=== PATIENT | male | born 1990 | race Two or more races ===

== ENCOUNTER 2025-08-19 12:39 | Emergency (ER) | payer BC, SELFPAY ==
[2025-08-19] VITALS (7 sets, daily range): BP systolic 104–143; BP diastolic 57–101
--- NOTE | 2025-08-19 13:30 | ED.GENMED ---
History of Present Illness
<Toi Fortune MD, Resident - Last Filed: 08/19/25 16:04>
General
Chief Complaint: Breathing Problem
Time Seen by Provider: 08/19/25 13:01
History of Present Illness
History of Present Illness:
Patient is a 35-year-old male with PMH of A-fib s/p ablation in February 2025 who presented to the [facility] ED with 3 days of shortness of breath. Shortness of breath is limiting his activity level, worse with sitting and standing, better with lying
down, associated with lightheadedness, mild cough, fatigue, and central chest pressure that the patient attributes to bloating/gas. Patient recently traveled to [place], returning 5 days ago (08/14). Patient also developed tingling in his upper
extremities today, which extends throughout his upper extremities and up to his knee in his lower extremities. The tingling is more pronounced more distally. No associated weakness or pain. Patient has previously seen a physical therapist and
machine mover for a neuromuscular complaint in his upper back, though he has no specific diagnosis for that problem. Patient has had approximately 30-40 pounds of weight loss since his A-fib ablation in February, which he attributes to changes to his
activity level following the procedure. Denies N/V/D, fever, chills, sick contacts, headache, bloody stool, black stool, wheezing, or hemoptysis.
Past History
<Toi Fortune MD, Resident - Last Filed: 08/19/25 16:04>
Past History
ED Past Medical History: Arrthythmia (A-fib s/p ablation)
ED Past Surgical History: Cardiac (A-fib ablation)
Family History
Family History: Cancer (Stomach - uncle; Colon - uncle)
Review of Systems
<Toi Fortune MD, Resident - Last Filed: 08/19/25 16:04>
Review of Systems
Constitutional: Reports weight loss and fatigue; Denies fever or chills
Respiratory: Reports cough and trouble breathing; Denies hemoptysis
Cardiac: Reports other (Lightheaded); Denies chest pain
ABD/GI: Reports other (Denies bowel incontinence); Denies abdominal pain, nausea, vomiting, diarrhea, bloody stools or black stools
: Denies incontinence
Neurological: Reports dizzy and other (Tingling in all 4 extremities; denies saddle anesthesia); Denies headache, weakness or numbness
Phy Exam
<Toi Fortune MD, Resident - Last Filed: 08/19/25 16:04>
Physical Exam
Physical Exam:
General: NAD. Conversant.
CV: RRR. S1, S2 noted. No LE edema. No M/R/G.
Pulm: CTAB. No wheezes or crackles. No cyanosis.
GI: Soft, nontender. Nondistended.
Neuro: A&O x 3. Motor, sensory intact. CN II through XII grossly intact. Patient describes increased extremity tingling after taking deep breaths.
Course
<Toi Fortune MD, Resident - Last Filed: 08/19/25 16:04>
Orders/Labs/Results
Orders:
Orders
08/19/25 12:40
EKG [Electrocardiogram (*1)] Urgent
Reason for Study: Shortness of Breath
08/19/25 12:41
EKG- Treatment ONCE
08/19/25 13:35
Complete Blood Count/With Diff Urgent
Comprehensive Metabolic Panel Urgent
Manual Differential Urgent
08/19/25 14:10
Chest [CR Chest - 2 Views ] Urgent
Comment:
Reason For Exam: Shortness of breath
08/19/25 14:19
COVID-19 Antigen Urgent
Source: Nasal Swab
D-Dimer Urgent
Troponin I Urgent
Influenza A+B Rapid Molecular Urgent
JIMMY Source: Nasal Swab
Specimen Description:
Abnormal Lab Results
08/19/25
13:35
MCH 31.9 H pg
(27.0-31.0)
Sodium 134 L mmol/L
(135-145)
Calcium 10.3 H mg/dl
(8.4-10.2)
08/19/25 13:35
08/19/25 13:35
Vital Signs
Initial and Last Documented VS:
Initial Vital Signs
Temp Pulse Resp BP Pulse Ox
98.3 F 66 18 143/101 98
08/19/25 12:42 08/19/25 12:42 08/19/25 12:42 08/19/25 12:42 08/19/25 12:42
Last Documented Vital Signs
Temp Pulse Resp BP Pulse Ox
98.3 F 59 15 120/65 99
08/19/25 12:42 08/19/25 14:30 08/19/25 14:30 08/19/25 14:00 08/19/25 14:30
<Billy العراقي, DO - Last Filed: 08/19/25 15:32>
Orders/Labs/Results
Orders:
Orders
08/19/25 12:40
EKG [Electrocardiogram (*1)] Urgent
Reason for Study: Shortness of Breath
08/19/25 12:41
EKG- Treatment ONCE
08/19/25 13:35
Complete Blood Count/With Diff Urgent
Comprehensive Metabolic Panel Urgent
Manual Differential Urgent
08/19/25 14:10
Chest [CR Chest - 2 Views ] Urgent
Comment:
Reason For Exam: Shortness of breath
08/19/25 14:19
COVID-19 Antigen Urgent
Source: Nasal Swab
D-Dimer Urgent
Troponin I Urgent
Influenza A+B Rapid Molecular Urgent
JIMMY Source: Nasal Swab
Specimen Description:
Abnormal Lab Results
08/19/25
13:35
MCH 31.9 H pg
(27.0-31.0)
Sodium 134 L mmol/L
(135-145)
Calcium 10.3 H mg/dl
(8.4-10.2)
08/19/25 13:35
08/19/25 13:35
Vital Signs
Initial and Last Documented VS:
Initial Vital Signs
Temp Pulse Resp BP Pulse Ox
98.3 F 66 18 143/101 98
08/19/25 12:42 08/19/25 12:42 08/19/25 12:42 08/19/25 12:42 08/19/25 12:42
Last Documented Vital Signs
Temp Pulse Resp BP Pulse Ox
98.3 F 59 15 120/65 99
08/19/25 12:42 08/19/25 14:30 08/19/25 14:30 08/19/25 14:00 08/19/25 14:30
<Toi Fortune MD, Resident - Last Filed: 08/19/25 16:04>
MDM/Problems Addressed
Differential Diagnosis Includes:
Pulmonary embolism
Pericardial effusion
Pneumonia
Heart failure
Bronchitis
Pneumothorax
Anemia
Pulmonary vein stenosis
Intracardiac shunt
MDM/Problems Addressed:
Assessment: Patient is a 35-year-old male with PMH of A-fib s/p ablation in February 2025 who presented to [facility] ED with 3 days of positional shortness of breath (worse sitting/standing, better supine), fatigue, mild cough, and lightheadedness in
setting of return from trip to [place] 5 days ago. Patient also has 1 day of tingling in all 4 extremities. Concern for PE vs. infection (bronchitis, pneumonia) vs. complication of ablation (pulmonary vein stenosis, intracardiac shunt, pericardial
effusion). Results as follows:
Clinical: AFVSS, EKG shows sinus bradycardia (HR 58)
Labs: WBC 5.6, Hgb 16.1, D-dimer negative, COVID-negative, flu negative, troponin 0.013
Imaging: CXR pending
Plan:
#Shortness of breath
EKG
Labs: CBC, CMP, D-dimer, troponin, COVID, flu
Imaging: CXR
Chronic conditions affecting care: Arrhythmia (S/p ablation)
<Toi Fortune MD, Resident - Last Filed: 08/19/25 16:04>
*Pulse Oximetry
SaO2: 99
Oxygen Mode of Delivery: Room air
*Critical Care Note
Total Time (30-74mins, 75-104mins- exclusive of procedures): Not Applicable
<Billy العراقي DO - Last Filed: 08/19/25 15:32>
*Radiology
Radiology exam reviewed: preliminary read by ED provider (I independently viewed and interpreted two-view chest x-ray showing clear lungs, normal cardiac silhouette)
*Pulse Oximetry
Patient hypoxic: no
*EKG
Interpreted by ED Provider?: Yes (I independently viewed and interpreted twelve-lead EKG showing sinus bradycardia, rate 58, normal axis, normal intervals, this is a normal variant, no prior for comparison)
*Market Survey Representative Interpretation
Rate: bradycardiac (I independently viewed and interpreted rhythm strip showing sinus bradycardia, no ectopy)
ED Attending Note
<Toi Fortune MD, Resident - Last Filed: 08/19/25 16:04>
-
Portions of this chart may have been created with voice recognition software.� Occasional wrong word or��sound alike� substitutions may have occurred due to the inherent limitations of voice recognition software.
<Billy العراقي DO - Last Filed: 08/19/25 15:32>
ED Attending Note
Patient seen and examined by attending physician: Yes
I performed the substantive portion of visit, reviewed & personally made and approve the management plan that is documented in note by myself or SHWETA.: Yes
I performed a history and physical exam of patient and discussed management with resident, I reviewed resident's note and agree with documented findings and plan of care.: Yes
ED Attending Note:
35-year-old male presents to the ER for evaluation of a constellation of symptoms which have been going on for the last several weeks. Patient states that he has been experiencing intermittent tingling to all 4 of his extremities off and on since
his cardiac ablation for atrial fibrillation. He is not currently on any medications. He recently traveled to [place] and states that he tolerated that without any difficulty. He had been having episodes of syncope but has not had any of that
recently. He has been eating and drinking without difficulty. No fevers. He comes to the ER today because he is feeling short of breath when laying flat. He denies chest pain per se. Vital signs reviewed, patient is awake, alert, appears no
acute distress, mucous membranes moist, conjunctiva pink, no JVD, heart regular rate and rhythm no murmurs or ectopy, lungs are clear to auscultation no wheezes rales or rhonchi, 2+ radial pulses present bilateral upper extremities with brisk cap
refill to the hands, 2+ DP pulses present symmetric bilateral lower extremities with brisk cap refill to the toes, GCS is 15. I discussed with patient and resident physician very reassuring workup so far including negative D-dimer. Chest x-ray is
clear. EKG showed does not show any evidence for ischemia. Symptoms have been going on persistently for the last several weeks with a troponin which is just 0.001 above negative-would not feel this to be clinically significant. Will plan for
discharge home for continued supportive treatment and outpatient PCP follow-up.
Discharge Plan
Departure
Patient Disposition: Home (Routine Discharge)
Date of Disposition: 08/19/25
Time of Disposition: 15:31
Patient with high blood pressure during this ER visit?: No
Discharge Problem:
Dyspnea, parasthesias
Instructions: Shortness of Breath (Dyspnea) (DC)
Referrals:
UNKNOWN - PT DOES,NOT KNOW [Unknown Provider]
Activity Restrictions/Additional Instructions:
Continue to encourage fluids along with utilizing 1 electrolyte replacement solution daily. Please contact your primary care physician today to schedule appointment for next week for reevaluation and further care.
Interventions
Interventions:
*Risk Screen - Suicide Last Done: 08/19/25 13:55
*General Assessment Last Done: 08/19/25 13:55
*Neglect/Abuse Screening Last Done: 08/19/25 13:55
*ED- Fall Risk Assessment Last Done: 08/19/25 13:55
*ED COVID-19 Vaccine History Last Done: 08/19/25 13:55
*ED Influenza Vaccine History Last Done: 08/19/25 13:55
ED- Cardiac Assessment Last Done: 08/19/25 13:39
ED- Pulmonary Assessment Last Done: 08/19/25 13:39
Discharge Date and Time
Print Language: TAJIK
[2025-08-19 14:03] LABS: Hematocrit 44.7 % (39.0-52.0); Hemoglobin 16.1 g/dL (13.0-18.0); Mean Corp Hgb Conc. 36.0 g/dL (33.0-37.0); Mean Corpuscular Volume 88.5 fL (80.0-94.0); Platelet Count 291 10^3/uL (130-400); Red Cell Dist. Width 11.8 % (11.5-14.5)
[2025-08-19 14:06] LABS: ALT (SGPT) 25 U/L (0-50); AST (SGOT) 25 U/L (17-59); Albumin 4.9 g/dl (3.5-5.0); Alkaline Phosphatase 50 U/L (38-126); Blood Urea Nitrogen 13 mg/dl (9-20); Calcium 10.3 mg/dl (8.4-10.2); Carbon Dioxide 25 mmol/L (22-30); Chloride 103 mmol/L (98-107); Glucose 84 mg/dl (70-99); Potassium 4.0 mmol/L (3.5-5.1); Sodium 134 mmol/L (135-145); Total Protein 7.7 g/dl (6.3-8.2); eGFR > 60.00
[2025-08-19 14:35] LABS: Absolute Neutrophils -Man Diff 2.6 10^3/uL (1.4-6.5)
[2025-08-19 14:36] LABS: Normal RBC Morphology Yes; Platelets Checked Yes; Total Cells Counted 100
[2025-08-19 14:42] LABS: D-Dimer < 0.27 ug/mlFEU (0.00-0.50)
[2025-08-19 14:58] LABS: COVID-19 Antigen Negative (Negative); Troponin I 0.013 ng/ml
== END 2025-08-19 17:25 | disposition home or self-care (01) ==
LOC: EMR 12:39
PROVIDERS: EMERGENCY PHYSICIAN Emergency Medicine; FAMILY PHYSICIAN General Practice
DX: R06.00 Dyspnea, unspecified (principal); R20.2 Paresthesia of skin; I48.91 Unspecified atrial fibrillation; Z80.9 Family history of malignant neoplasm, unspecified
CPT/HCPCS: 99283; 71046; 80053; 84484; 85025; 85379; 87502; 87811; 93005